=== PATIENT | male | born 1980 | race Hispanic/Latino ===

== ENCOUNTER 2024-03-26 14:24 | Emergency (ER) | payer OTHER ==
[2024-03-26] MEDS ORDERED: Lidocaine 1% PF 5 ML VIAL ONE (14:35)
== END 2024-03-26 15:31 | disposition home or self-care (01) ==
LOC: BURERS 14:24
DX: S61.011A Laceration without foreign body of right thumb without damage to nail, initial encounter (principal); I10 Essential (primary) hypertension; F17.210 Nicotine dependence, cigarettes, uncomplicated; W29.8XXA Contact with other powered hand tools and household machinery, initial encounter
CPT/HCPCS: 12002; 99283